=== PATIENT | female | born 1970 | race Asian ===

== ENCOUNTER 2021-08-14 05:30 | Inpatient (IN) | payer BC ==
[2021-08-08 15:09] LABS: BASOPHILS % (AUTO) 0.7 % (0-1); EOSINOPHILS # (AUTO) 0.1 X10'3 (0-0.9); EOSINOPHILS % (AUTO) 2.4 % (0-6); LYMPHOCYTES # (AUTO) 1.5 X10'3 (1.1-4.8); LYMPHOCYTES % (AUTO) 32.7 % (21-51); MEAN CORPUSCULAR HEMOGLOBIN 27.2 PG (27.0-31.0); MEAN CORPUSCULAR HGB CONC 32.8 g/dL (33.0-36.5); MEAN CORPUSCULAR VOLUME 82.9 FL (78-98); MEAN PLATELET VOLUME 6.5 FL (7.4-10.4); MONOCYTES # (AUTO) 0.4 X10'3 (0-0.9); MONOCYTES % (AUTO) 7.9 % (2-12); NEUTROPHILS # (AUTO) 2.6 X10'3 (1.8-7.7); NEUTROPHILS % (AUTO) 56.3 % (42-75); PRE OP HEMATOCRIT 29.8 % (35.0-45.0); PRE OP PLATELET COUNT 382 X10'3 (140-440); RED BLOOD COUNT 3.59 X10'6 (4.20-5.60); RED CELL DISTRIBUTION WIDTH 16.7 % (11.5-14.5)
[2021-08-08 15:10] LABS: CLARITY,URINE CLEAR (Clear); GLUCOSE, URINE NEGATIVE (Neg); KETONES,URINE NEGATIVE (Neg); LEUKOCYTE ESTERASE ,URINE NEGATIVE (Neg); NITRITES, URINE NEGATIVE (Neg); OCCULT BLOOD,URINE NEGATIVE (Neg); PROTEIN,URINE NEGATIVE (Neg); UROBILINOGEN,URINE 0.2 E.U/dL (0.2-1.0)
[2021-08-08 15:11] LABS: PRE OP HEMOGLOBIN 9.8 g/dL (12.0-16.0)
[2021-08-08 15:12] LABS: COLOR,URINE STRAW (Yellow); UA COLLECTION TYPE CLN CATCH MIDSTREAM
[2021-08-08 15:19] LABS: HCG SERUM QL NEGATIVE
[2021-08-08 15:27] LABS: ALBUMIN 3.6 G/DL (3.4-5.0); ALBUMIN/GLOBULIN RATIO 0.9 (1.1-1.5); ALKALINE PHOSPHATASE 48 IU/L (46-116); BLOOD UREA NITROGEN 16 MG/DL (7-18); BUN/CREATININE RATIO 23.2 (6.6-38.0); CALCIUM 8.6 MG/DL (8.5-10.1); CHLORIDE 106 MMOL/L (99-107); CREATININE 0.69 MG/DL (0.40-0.90); PRE OP ALT 39 U/L (30-65); PRE OP ANION GAP 10 (8-16); PRE OP AST 23 U/L (10-37); PRE OP BILIRUB, TOTAL 0.4 MG/DL (0.0-1.0); PRE OP SODIUM 142 MMOL/L (135-145); TOTAL CARBON DIOXIDE 26.2 MMOL/L (24-32); TOTAL PROTEIN 7.7 G/DL (6.4-8.2); eGFR 90 ML/MIN
[2021-08-08 15:29] LABS: PRE OP GLUCOSE 109 MG/DL (70-104)
[~2021-08-14] VITALS: Ht 162.6 cm; Wt 59.5 kg
[2021-08-14] VITALS (14 sets, daily range): BP systolic 95–123; BP diastolic 47–84
[~2021-08-14 05:30] MED LIST: CHOL20002 PO; CYAN100097 PO; FERR-116 PO; MAGN500C4 PO; OMEG-133 PO; OMEP20CA16 PO; UBID1CAP54 PO; VANCOMYCIN INJ 1000 MG in NORMAL SALINE 200ml IV.SOLN IV ONE; clindamycin-Cleocin 900mg/D5W 50 ML IV ONE; famotidine 20mg tablet PO ONE
[2021-08-14] MEDS ORDERED: BUPIVAcaine 0.5% inj/PF 30 ML ONE ×2 (06:49→06:50)
[2021-08-14] MEDS ORDERED: epiNEPHrine 1 mg/ml inj ONE (06:49)
[2021-08-14] MEDS ORDERED: clindamycin phosphate 40gm vag cream ONE (06:49)
[2021-08-14] MEDS ORDERED: neomy sulf/polymyxin B sulf. GU irrigation 1ml amp IR ONE (06:51)
[2021-08-14] MEDS ORDERED: midazolam 1 mg/ML 2ml injection ONE (07:20)
[2021-08-14] MEDS ORDERED: fentaNYL /PF 50mcg/ml 5ml ampule ONE (07:21)
[2021-08-14] MEDS ORDERED: rocuronium 10mg/ml inj IV ONE (07:35)
[2021-08-14] MEDS ORDERED: LIDOcaine 2% (20mg/ml) 5ml vial ONE (07:35)
[2021-08-14] MEDS ORDERED: propofol inj 20 ML IV ONE (07:35)
[2021-08-14] MEDS ORDERED: dexamethasone sod phosphate 4mg/ml inj. ONE (07:55)
[2021-08-14] MEDS ORDERED: ondansetron/PF 4mg/2ml inj ONE (07:55)
[2021-08-14] MEDS ORDERED: 0.9 % SODIUM CHLORIDE 10 ML VIAL ONE (08:42)
[2021-08-14] MEDS ORDERED: ePHEDrine 50MG/ML INJ. ONE (08:42)
[2021-08-14] MEDS ORDERED: glycopyrrolate 0.2mg/ml inj ONE (09:34)
[2021-08-14] MEDS ORDERED: neostigmine methylsulfate 1 MG/ML 10ml vial ONE (09:34)
[2021-08-14] MEDS ORDERED: labetalol 20mg/4ml (5mg/ml) syringe IV PRN (09:45)
[2021-08-14] MEDS ORDERED: ketorolac trometh. 30mg/ml inj. IV ONE (09:45)
[2021-08-14] MEDS ORDERED: hydrALAZINE 20mg/ml inj. IV PRN (09:45)
[2021-08-14] MEDS ORDERED: acetaminophen 1,000mg/100ml IV 100 ML IV PRN (09:45)
[2021-08-14] MEDS ORDERED: proCHLORperazine 10 MG/2 ml inj IV PRN (09:45)
[2021-08-14] MEDS ORDERED: ringers solution, lacted 1,000 ML IV SCH (09:45)
[2021-08-14] MEDS ORDERED: ondansetron/PF 4mg/2ml inj IV PRN ×2 (09:45→09:55)
[2021-08-14] MEDS ORDERED: meperidine/PF 25mg/ml syringe IV PRN ×3 (09:45)
[2021-08-14] MEDS ORDERED: morphine 2 MG/ML inj. syringe IV PRN (09:45)
[2021-08-14] MEDS ORDERED: morphine 4 MG/ML inj SYRINge IV PRN (09:45)
[2021-08-14] MEDS ORDERED: normal saline 500ml IV soln 500 ML IV PRN (09:55)
[2021-08-14] MEDS ORDERED: magnesium hydroxide 30ml (MOM) UD suspension PO PRN (09:55)
[2021-08-14] MEDS ORDERED: LORazepam 2 mg/ml vial IV PRN (09:55)
[2021-08-14] MEDS ORDERED: HYDROcodone/acetaminophen 10/325mg tab PO PRN ×2 (09:55)
[2021-08-14] MEDS ORDERED: metoclopramide 5 mg/ml inj IV PRN (09:55)
[2021-08-14] MEDS ORDERED: diphenhydrAMINE 50 mg/ml inj IV PRN (09:55)
[2021-08-14] MEDS ORDERED: temazepam 15mg capsule PO PRN (09:55)
[2021-08-14] MEDS ORDERED: morphine 4 MG/ML inj SYRINge ONE (10:06)
--- NOTE | 2021-08-14 10:20 | NUR ---
Received from OR via BED IN STABLE CONDITION , accompanied by Anesthesiologist and TRUSS BUILDER report given by TRUSS BUILDER AND Anesthesiolgist. Addendum: 08/14/21 at 1037 by Yasmeen Beal RN Amended: Links added.
--- NOTE | 2021-08-14 11:20 | NUR ---
received report from delivery table operator. Awaiting patient arrival.
--- NOTE | 2021-08-14 11:30 | NUR ---
PATIENT DISCHARGED FROM PACU IN STABLE CONDITION AFTER REPORT GIVEN TO RN TAKING OVER PATIENTS CARE. PATIENT TRANSPORTED TO ROOM 360B VIA BED WITH INTERIOR SYSTEMS CARPENTER X2. Addendum: 08/14/21 at 1140 by Yasmeen Beal RN Amended: Links added.
--- NOTE | 2021-08-14 11:45 | NUR ---
patient arrived to floor. VSS. no complaints
--- NOTE | 2021-08-14 12:25 | NUR ---
Received from OR via BED IN STABLE CONDITION , accompanied by Anesthesiologist and EXHAUST EMISSIONS AUTOMOTIVE TECHNICIAN report given by EXHAUST EMISSIONS AUTOMOTIVE TECHNICIAN AND Anesthesiolgist. Addendum: 08/14/21 at 1237 by Yasmeen Beal RN Amended: Links added.
[2021-08-14] MEDS: ringers solution, lacted 1,000 ML IV SCH ×2 (12:28→15:48)
--- NOTE | 2021-08-14 17:14 | NUR ---
remainder of post op vitals were deleted accidently. patient current vitals stable. no complaints. Addendum: 08/14/21 at 1715 by Buffy Morales RN Amended: Links added.
--- NOTE | 2021-08-14 18:10 | NUR ---
Problems reprioritized. Patient report given, questions answered & plan of care reviewed with NAVNEET Escobedo.
--- NOTE | 2021-08-14 18:30 | NUR ---
Patient in room [facility]. I have received report from TACO TOTH and had the opportunity to ask questions and assume patient care.
[2021-08-14] MEDS: ketorolac trometh. 30mg/ml inj. IV PRN (18:41)
[2021-08-14] MEDS: docusate sod 100mg capsule PO SCH (20:14)
[2021-08-15] VITALS: BP 104/70
[2021-08-15] MEDS: ringers solution, lacted 1,000 ML IV SCH (00:36)
[2021-08-15] MEDS: ketorolac trometh. 30mg/ml inj. IV PRN ×2 (00:46→12:41)
[2021-08-15] MEDS ORDERED: ringers solution, lacted 1,000 ML IV SCH (05:00)
[2021-08-15 06:19] LABS: BASOPHILS % (AUTO) 0.1 % (0-1); EOSINOPHILS % (AUTO) 0.1 % (0-6); HEMATOCRIT 26.4 % (35.0-45.0); HEMOGLOBIN 8.5 g/dl (12.0-16.0); LYMPHOCYTES # (AUTO) 1.3 X10'3 (1.1-4.8); LYMPHOCYTES % (AUTO) 14.8 % (21-51); MEAN CORPUSCULAR HEMOGLOBIN 26.5 PG (27.0-31.0); MEAN CORPUSCULAR HGB CONC 32.4 g/dL (33.0-36.5); MEAN CORPUSCULAR VOLUME 81.7 FL (78-98); MONOCYTES # (AUTO) 0.7 X10'3 (0-0.9); MONOCYTES % (AUTO) 7.8 % (2-12); NEUTROPHILS # (AUTO) 6.8 X10'3 (1.8-7.7); NEUTROPHILS % (AUTO) 77.2 % (42-75); PLATELET COUNT 284 X10'3 (140-440); RED BLOOD COUNT 3.23 X10'6 (4.20-5.60); WHITE BLOOD COUNT 8.8 X10'3 (4.5-11.0)
[2021-08-15 06:25] LABS: ALBUMIN 2.8 G/DL (3.4-5.0); ANION GAP 11 (8-16); BLOOD UREA NITROGEN 10 MG/DL (7-18); BUN/CREATININE RATIO 12.3 (6.6-38.0); CALCIUM 8.3 MG/DL (8.5-10.1); CHLORIDE 108 MMOL/L (99-107); CREATININE 0.81 MG/DL (0.40-0.90); GLUCOSE 107 MG/DL (70-104); SODIUM 142 MMOL/L (135-145); TOTAL CARBON DIOXIDE 23.2 MMOL/L (24-32); eGFR 75 ML/MIN
--- NOTE | 2021-08-15 06:30 | NUR ---
Problems reprioritized. Patient report given, questions answered & plan of care reviewed with TIAGO RN.
--- NOTE | 2021-08-15 06:40 | NUR ---
Patient in room [facility]. I have received report from Kendra Gardner RN and had the opportunity to ask questions and assume patient care.
[2021-08-15 07:49] VITALS: BP 98/57
[2021-08-15] MEDS ORDERED: enoxaparin 40mg/0.4ml syringe SQ SCH (08:00)
[2021-08-15] MEDS: docusate sod 100mg capsule PO SCH (10:11)
[2021-08-15 11:00] VITALS: BP 117/54
--- NOTE | 2021-08-15 13:25 | NUR ---
DC inst provided to pt & pt's spouse. IV DC'd, tip intact. All belongings sent w/pt. WC to vehicle.
== END 2021-08-15 13:26 | disposition home or self-care (01) | DRG 743 ==
LOC: PAS IN 05:30 → UNDOADMIN 05:30 → EDSTATUS 07:30 → PAS IN 10:00 → SUR 3N 11:58 → PAS IN 11:58
PROVIDERS: ADMIT Obstetrics & Gynecology Obstetrics; ATTEND Obstetrics & Gynecology Obstetrics
PROC: 0UT70ZZ Resection of Bilateral Fallopian Tubes, Open Approach (ICD-10-PCS; 2021-08-14)
PROC: 0UT90ZZ Resection of Uterus, Open Approach (ICD-10-PCS; principal; 2021-08-14 07:28)
DX: D25.9 Leiomyoma of uterus, unspecified (principal); N92.1 Excessive and frequent menstruation with irregular cycle; K21.9 Gastro-esophageal reflux disease without esophagitis; Z88.0 Allergy status to penicillin
CPT/HCPCS: Z7506; Z7508; 36415; 71046; 76010; 80048; 80053; 81003; 82948; 84703; 85025; 86885; 86900; 86901; 87081; 93005; A4314; A4618; A7000; C1758; G0378; J0131; J0171; J1100; J1650; J1885; J2250; J2270; J2405; J2704; J2710; J3010; J3370; J3490; J7120; S0020; U0003; U0005